=== PATIENT | female | born 1970 | race Two or more races ===

== ENCOUNTER 2017-04-18 17:00 | Emergency (ER) | payer MEDICARE ==
[~2017-04-18] VITALS: Ht 154.9 cm; Wt 84.0 kg
[2017-04-18 17:18] VITALS: BP 132/61
== END 2017-04-18 19:26 | disposition home or self-care (01) ==
LOC: ER 17:00
DX: M62.838 Other muscle spasm (principal); M54.5 Low back pain; V49.88XA Car occupant (driver) (passenger) injured in other specified transport accidents, initial encounter; Y93.89 Activity, other specified; Y92.410 Unspecified street and highway as the place of occurrence of the external cause; Y99.8 Other external cause status
CPT/HCPCS: 99283

== ENCOUNTER 2022-12-10 15:51 | Emergency (ER) | payer MEDICARE ==
[~2022-12-10] VITALS: Ht 160 cm; Wt 77.2 kg
[2022-12-10 16:04] VITALS: TEMP 98.3; O2SAT 100
[2022-12-10 17:05] VITALS: BP 130/61; PULSE 64; RESP 18
[2022-12-10] MEDS ORDERED: IBUPROFEN 600MG TABLET PO STA (17:05)
[2022-12-10 17:40] LABS: BASOPHILS % 0.7 % (0.0-2.0); EOSINOPHILS % 2.8 % (0.0-5.0); HEMATOCRIT. 38.6 % (36.0-48.0); HEMOGLOBIN. 13.3 g/dL (12.0-16.0); MEAN CORPUSCULAR HEMOGLOBIN 32.2 pg (28.0-32.0); MEAN CORPUSCULAR HGB CONC 34.6 g/dL (31.0-37.0); MONOCYTES % 8.4 % (2.0-8.0); NEUTROPHILS % 72.1 % (40.0-76.0); PLATELET 197 x1000/uL (130-400); RED BLOOD CELL COUNT 4.15 mill/uL (4.2-5.4); RED CELL DISTRIBUTION WIDTH 12.7 % (11.6-14.6); WHITE BLOOD COUNT 4.3 x1000/uL (4.5-11.0)
[2022-12-10 17:52] LABS: CHLORIDE 106 mEq/L (98-107); INDEX HEMOLYSI 1 (1-3); INDEX ICTERIC 1 (1-4); INDEX LIPEMIC 1 (1-3); POTASSIUM 3.7 mEq/L (3.5-5.1); SODIUM 139 mEq/L (136-145)
[2022-12-10 18:02] LABS: ALANINE AMINOTRANSFERASE 38 IU/L (13-61); ALBUMIN 3.7 g/dL (3.4-5.0); ASPARTATE AMINOTRANSFERASE 25 IU/L (15-37); BILIRUBIN TOTAL 0.4 mg/dL (0.1-1.0); CALCIUM 8.4 mg/dL (8.5-10.1); CARBON DIOXIDE 28 mEq/L (21-32); CREATININE 0.6 mg/dL (0.6-1.3); GLUCOSE 91 mg/dL (70-105); PROTEIN TOTAL 7.4 g/dL (6.0-8.3); UREA NITROGEN BLOOD 16 mg/dL (7-21)
[2022-12-10 18:31] LABS: CLARITY URINE CLEAR (CLEAR); COLOR URINE YELLOW (YELLOW); GLUCOSE URINE NEGATIVE (NEGATIVE); KETONES URINE NEGATIVE (NEGATIVE); LEUKOCYTE ESTERASE URINE NEGATIVE (NEGATIVE); NITRITE URINE NEGATIVE (NEGATIVE); OCCULT BLOOD URINE NEGATIVE (NEGATIVE); PH URINE 6.5 (4.5-8.0); PROTEIN URINE NEGATIVE (NEGATIVE); SPECIFIC GRAVITY URINE 1.019 (1.005-1.030)
[2022-12-10] MEDS ORDERED: D-ME473S50 PO (18:50)
[2022-12-10] MEDS ORDERED: FLUT9.9S BOTHNSTRLS (18:50)
[2022-12-10] MEDS ORDERED: NAPR-681 PO (18:50)
[2022-12-10] MEDS ORDERED: ALBU18HF2 IH (18:50)
== END 2022-12-10 19:15 | disposition home or self-care (01) ==
LOC: ER 15:51
DX: J20.9 Acute bronchitis, unspecified (principal); Z20.822 Contact with and (suspected) exposure to COVID-19
CPT/HCPCS: 99284; 71045; 87426; 80053; 81003; 85025; 87804 ×2; 36415; C9803